=== PATIENT | female | born 1980 | race Caucasian/White ===

== ENCOUNTER 2025-04-23 17:16 | Emergency (ER) | payer BC, SELFPAY ==
[2025-04-23 17:21] VITALS: BP 142/111; PULSE 88; TEMP 36.7; O2SAT 99; BMI 31.4
--- NOTE | 2025-04-23 17:36 | US_ITS ---
The [address] [address] Patient Name: AURORA VILLAREAL MRN: [id number] date: 1980 Sex: F Assigned Patient Location: ER Current Patient Location: ED.MAIN Accession/Order Number: [id number] Exam Date: 04/23/2025 18:52 Report Date: 04/23/2025 18:54 At the request of: MO PETERSON MD Procedure: US right upper quadrant Ultrasound right upper quadrant INDICATION: Nausea and vomiting unremarkable cardiomediastinal. COMPARISON: None FINDINGS: Liver unremarkable in size and echotexture measuring 15.3 cm. Normal hepatopedal blood flow. Gallbladder without gallstones. Wall 1.8 mm. Morales's sign is negative common bile duct 3.6 mm. Pancreas is grossly unremarkable as visualized. Kidney on the right without hydronephrosis measuring 11.1 x 5.8 x 5.6 cm. US/US right upper quadrant IMPRESSION: Essentially unremarkable ultrasound right upper quadrant. Impression dictated by: Paulo Hopkins M.D. 04/23/2025 6:54 PM Dictation Location: [place] [address] Electronically authenticated by: [id number] Y Date: 04/23/2025 18:54
--- NOTE | 2025-04-23 17:39 | ED.GENADUL1 ---
HPI HPI - General Adult General Chief complaint: Abdominal Pain Stated complaint: RIGHT SIDE HURTS Time Seen by Provider: 04/23/25 17:22 Source: patient Mode of arrival: walk-in Limitations: no limitations History of Present Illness HPI narrative: 44-year-old female presents for right upper quadrant abdominal pain. She has had it continuously for 2 days. She has never had an issue with her gallbladder but multiple family members have. No trauma or fever or constipation. No chest pain or shortness of breath. Related Data Home Medications ?Medication ?Instructions ?Recorded ?Confirmed citalopram 20 mg tablet 20 mg PO DAILY 04/23/25 04/23/25 lisinopril 20 1 tab PO DAILY 04/23/25 04/23/25 mg-hydrochlorothiazide 25 mg tablet Allergies Allergy/AdvReac Type Severity Reaction Status Date / Time No Known Drug Allergies Allergy Verified 04/23/25 17:26 Opioid HPI Opioid Management Most Recent Opioid Data: Last Pain Scale 8 Today, 17:21 Review of Systems ROS Narrative A ten point review of systems is negative except as noted above. PFSH PFSH Social History Little interest or pleasure in doing things: not at all Feeling down, depressed, or hopeless: not at all Exam Narrative Exam Narrative: Nurses note and vital signs reviewed and patient is not hypoxic. General: The patient appears well and in no apparent distress. Patient is resting comfortably on cart. Skin: Warm, dry, no pallor noted. There is no rash noted. Head: Normocephalic, atraumatic Eye: Normal conjunctiva, no drainage Ears, Nose, Mouth, and Throat: oral mucosa is moist. Nares patent. Cardiovascular: Regular Rate and Rhythm Respiratory: Patient is in no distress, no accessory muscle use, lungs are clear to auscultation, no wheezing, rales or rhonchi Back: non-tender GI: Soft and nondistended. Tenderness present in the right upper quadrant without mass. Musculoskeletal: The patient has no evidence of calf tenderness, no pitting edema, symmetrical pulses noted bilaterally Neurological: A&O, normal speech Psychiatric: Cooperative Constitutional Vital Signs, click to edit/add: Last Vital Signs Temp 98.1 F 04/23/25 17:21 Pulse 88 04/23/25 17:21 Resp 18 04/23/25 17:21 BP 142/111 H 04/23/25 17:21 Pulse Ox 99 04/23/25 17:21 O2 Del Method Room Air 04/23/25 17:21 Course Vital Signs Vital signs: Vital Signs Temperature 98.1 F 04/23/25 17:21 Pulse Rate 88 04/23/25 17:21 Respiratory Rate 18 04/23/25 17:21 Blood Pressure 142/111 H 04/23/25 17:21 Pulse Oximetry 99 04/23/25 17:21 Oxygen Delivery Method Room Air 04/23/25 17:21 Temperature 98.1 F 04/23/25 17:21 Pulse Rate 88 04/23/25 17:21 Respiratory Rate 18 04/23/25 17:21 Blood Pressure 142/111 H 04/23/25 17:21 Pulse Oximetry 99 04/23/25 17:21 Oxygen Delivery Method Room Air 04/23/25 17:21 Medical Decision Making MDM Narrative Medical decision making narrative: Blood work is nonspecific. Ultrasound of right upper quadrant is ordered and pending and the patient is signed out to Dr. Madrigal at change of shift. Differential Diagnosis Differential Diagnosis: Cholelithiasis, acute cholecystitis, nonspecific abdominal pain Lab Data Lab results reviewed: Yes I reviewed the patient's lab results Labs: Lab Results 04/23/25 Range/Units 17:37 WBC 9.4 (4.0-11.0) 10^3/uL RBC 4.88 (4.20-5.40) 10^6/uL Hgb 14.9 (12.0-16.0) g/dL Hct 41.8 (36.0-48.0) % MCV 85.7 (81.0-99.0) fL MCH 30.5 (26.7-34.0) pg MCHC 35.6 H (29.9-35.2) g/dL RDW 12.6 (11.0-15.0) % Plt Count 223 (150-450) 10^3/uL MPV 10.3 (9.5-13.5) fL Neut % (Auto) 69.7 (43.0-75.0) % Lymph % (Auto) 19.1 L (20.5-60.0) % [place] % (Auto) 9.9 (1.7-12.0) % Eos % (Auto) 0.4 L (0.9-7.0) % Baso % (Auto) 0.5 (0.2-2.0) % Neut # (Auto) 6.6 H (1.4-6.5) 10^3/uL Lymph # (Auto) 1.8 (1.2-3.8) 10^3/uL [place] # (Auto) 0.9 H (0.3-0.8) 10^3/uL Eos # (Auto) 0.0 (0.0-0.7) 10^3/uL Baso # (Auto) 0.1 (0.0-0.1) 10^3/uL Abs Immat Gran (auto) 0.04 H (0.00-0.03) 10^3/uL Imm/Tot Granulo (auto) 0.4 (0.0-0.5) % Sodium 135 L (136-145) mmol/L Potassium 2.9 L* (3.5-5.1) mmol/L Chloride 96 L (98-107) mmol/L Carbon Dioxide 27.9 (21.0-32.0) mmol/L Anion Gap 14.0 BUN 20.0 H (7.0-18.0) mg/dL Creatinine 1.12 H (0.55-1.02) mg/dL Est GFR ( Amer) >60 (>=60 mL/min/1.73m^2) Est GFR (Non-Af Amer) 53 L (>=60 mL/min/1.73m^2) BUN/Creatinine Ratio 17.9 Glucose 113 H (74-106) mg/dL Calcium 9.4 (8.5-10.1) mg/dL Total Bilirubin 1.4 H (0.2-1.0) mg/dL Direct Bilirubin 0.3 H (0.0-0.2) mg/dL AST 51 H (15-37) U/L ALT 51 (14-59) U/L Alkaline Phosphatase 78 (46-116) U/L Total Protein 8.0 (6.4-8.2) g/dL Albumin 4.3 (3.4-5.0) g/dL Globulin 3.7 g/dL Albumin/Globulin Ratio 1.2 Amylase 66 (25-115) U/L Lipase 81.0 H (16.0-77.0) U/L Discharge Plan Discharge Patient Disposition: Still a Patient
[2025-04-23 17:45] LABS: Hematocrit 41.8 % (36.0-48.0); Hemoglobin 14.9 g/dL (12.0-16.0); Immature Granulocytes Abs Auto 0.04 10^3/uL (0.00-0.03); Immature Granulocytes Pct Auto 0.4 % (0.0-0.5); Lymphocytes Absolute Auto 1.8 10^3/uL (1.2-3.8); Mean Corpuscular HGB Conc 35.6 g/dL (29.9-35.2); Mean Corpuscular Hemoglobin 30.5 pg (26.7-34.0); Mean Corpuscular Volume 85.7 fL (81.0-99.0); Platelet Count 223 10^3/uL (150-450); Red Blood Count 4.88 10^6/uL (4.20-5.40); White Blood Count 9.4 10^3/uL (4.0-11.0)
[2025-04-23 18:05] LABS: Alanine Aminotransferase 51 U/L (14-59); Albumin Globulin Ratio 1.2; Albumin Level 4.3 g/dL (3.4-5.0); Alkaline Phosphatase 78 U/L (46-116); Amylase 66 U/L (25-115); Anion Gap 14.0; Aspartate Amino Transferase 51 U/L (15-37); Blood Urea Nitrogen 20.0 mg/dL (7.0-18.0); Calcium 9.4 mg/dL (8.5-10.1); Carbon Dioxide 27.9 mmol/L (21.0-32.0); Chloride 96 mmol/L (98-107); Estimated GFR (African America >60 (>=60 mL/min/1.73m^2); Estimated GFR (Non-African Ame 53 (>=60 mL/min/1.73m^2); Globulin 3.7 g/dL; Glucose 113 mg/dL (74-106); Lipase 81.0 U/L (16.0-77.0); Sodium 135 mmol/L (136-145); Total Protein 8.0 g/dL (6.4-8.2)
[2025-04-23 18:08] LABS: Potassium 2.9 mmol/L (3.5-5.1)
--- OUTSIDE RECORDS SUMMARY | 2025-04-23 18:26 | XMS_ITS | Encounter Summary ---
Author Organization [facility] Address [address] [place] [address] Care Team Providers Care Dairy Farm Worker Name Role Phone Tuan Estrella MD Primary Care Provider [phone] Tuan Estrella MD Primary Care Provider [phone] Reason for Visit * Reason Comments Med Refill Encounter Details Date Type Department Care Team ([facility] Contact Info) Description 05/08/2024 Refill [facility] [address] [place] [address] Tuan Estrella MD [address] [place] [address] Generalized anxiety disorder Social History Tobacco Use Types Packs/Day Years Used Date Smoking Tobacco: Never Assessed Comments No Sex and Gender Information Value Date Recorded Sex Assigned at Not on file Legal Sex Female 11:47 PM EDT Gender Identity Not on file Sexual Orientation Not on file documented as of this encounter Miscellaneous Notes * Telephone Encounter - Tuan Estrella MD - 05/08/2024 4:35 PM EDT Last seen in June and need to schedule follow up visit. documented in this encounter Plan of Treatment Not on file documented as of this encounter Visit Diagnoses Diagnosis Generalized anxiety disorder Generalized anxiety disorder documented in this encounter Care Teams Dairy Farm Worker Relationship Specialty Start Date End Date Tuan Estrella MD PCP - General Family Medicine 11/09/23 03/26/25 Tuan Estrella MD [address] [place] [address] PCP - General Family Medicine 03/27/25 documented as of this encounter
[2025-04-23 19:05] VITALS: BP 134/87; PULSE 82; O2SAT 99
--- NOTE | 2025-04-23 19:16 | CT_ITS ---
The [address] [address] Patient Name: AURORA VILLAREAL MRN: [id number] date: 1980 Sex: F Assigned Patient Location: ER Current Patient Location: ER Accession/Order Number: [id number] Exam Date: 04/23/2025 19:57 Report Date: 04/23/2025 20:02 At the request of: JOSIAH MEDLEY MD Procedure: CT abdomen pelvis w con CT ABDOMEN AND PELVIS WITH INTRAVENOUS CONTRAST: CLINICAL HISTORY: RUQ abd pain, N/V/D COMPARISON: None TECHNIQUE: Spiral images were obtained through the abdomen and pelvis following the administration of intravenous contrast. This CT exam was performed using one or more following dose reduction techniques: Automated exposure control, adjustment of the mA and/or kV according to patient size, or use of iterative reconstruction technique. FINDINGS: Lung Bases: [No focal opacity] Organs:Low attenuation liver suggestive of fatty infiltration. Slight prominence right proximal ureter noted no definite obstructing calculi.. Otherwise gallbladder, spleen, adrenals, kidneys, and pancreas are unremarkable.[ GI: Mild retained stool. No bowel obstruction. Appendix unremarkable.[ Pelvis:[IUD within the uterus. No suspicious adnexal masses] bladder unremarkable. Peritoneum/Retroperitoneum:No free air or free fluid.[Aorta unremarkable caliber Abd wall/Bones:Scattered Schmorl's node deformities. Mild facet arthropathy.[ CT/CT abdomen pelvis w con IMPRESSION: Negative for acute inflammatory process or bowel obstruction Impression dictated by: Paulo Hopkins M.D. 04/23/2025 8:02 PM Dictation Location: [place] [address] Electronically authenticated by: [id number] Y Date: 04/23/2025 20:02
--- NOTE | 2025-04-23 19:20 | ED.ABDPAIN1 ---
HPI - Abdominal Pain General Chief Complaint: Abdominal Pain Stated Complaint: RIGHT SIDE HURTS Time Seen by Provider: 04/23/25 17:22 Source: patient Mode of arrival: walk-in Limitations: no limitations History of Present Illness HPI narrative: This 44-year-old female with and out to me at shift change. She presents for evaluation of nausea vomiting with history of chronic diarrhea. At the time of signout labs and ultrasound were pending. I reviewed her labs. She has a potassium of 2.8. She has a mild elevation in her lipase at 81 and mild elevation in her transaminases. She admits to moderate drinking. She states that on Tuesday while grocery shopping she suddenly became extremely diaphoretic and nauseated and went home and started vomiting. She vomited all day Tuesday and Tuesday. She has chronic diarrhea for which she is seeing Dr. Ruiz later this week. She now has right upper quadrant abdominal pain. She has not had a fever. She denies any hematemesis or bloody stool. CT scan of the abdomen pelvis is negative for acute findings but does show fatty liver. The results of the CT scan were discussed with the patient and her . She was given a copy to share with the general surgeon when she sees him next week. She was given IV fluids, Zofran, Pepcid and Toradol and on reevaluation states she is feeling better. She is anxious to be discharged home. She will be discharged home with a prescription for Zofran, Pepcid, potassium and Bentyl. She was encouraged to drink plenty of fluids and return to the emergency department for worsening symptoms or any concerns. Related Data Home Medications ?Medication ?Instructions ?Recorded ?Confirmed citalopram 20 mg tablet 20 mg PO DAILY 04/23/25 04/23/25 lisinopril 20 1 tab PO DAILY 04/23/25 04/23/25 mg-hydrochlorothiazide 25 mg tablet Allergies Allergy/AdvReac Type Severity Reaction Status Date / Time No Known Drug Allergies Allergy Verified 04/23/25 17:26 PFSH PFSH Social History Little interest or pleasure in doing things: not at all Feeling down, depressed, or hopeless: not at all Exam Constitutional Vital Signs, click to edit/add: Last Vital Signs Temp 98.1 F 04/23/25 17:21 Pulse 80 04/23/25 20:50 Resp 18 04/23/25 20:50 BP 131/90 04/23/25 20:50 Pulse Ox 97 04/23/25 20:50 O2 Del Method Room Air 04/23/25 20:50 Course Vital Signs Vital signs: Vital Signs Temperature 98.1 F 04/23/25 17:21 Pulse Rate 88 04/23/25 17:21 Respiratory Rate 18 04/23/25 17:21 Blood Pressure 142/111 H 04/23/25 17:21 Pulse Oximetry 99 04/23/25 17:21 Oxygen Delivery Method Room Air 04/23/25 17:21 Temperature 98.1 F 04/23/25 17:21 Pulse Rate 80 04/23/25 20:50 Respiratory Rate 18 04/23/25 20:50 Blood Pressure 131/90 04/23/25 20:50 Pulse Oximetry 97 04/23/25 20:50 Oxygen Delivery Method Room Air 04/23/25 20:50 MDM - Abdominal Pain Lab Data Labs: Lab Results 04/23/25 Range/Units 17:37 WBC 9.4 (4.0-11.0) 10^3/uL RBC 4.88 (4.20-5.40) 10^6/uL Hgb 14.9 (12.0-16.0) g/dL Hct 41.8 (36.0-48.0) % MCV 85.7 (81.0-99.0) fL MCH 30.5 (26.7-34.0) pg MCHC 35.6 H (29.9-35.2) g/dL RDW 12.6 (11.0-15.0) % Plt Count 223 (150-450) 10^3/uL MPV 10.3 (9.5-13.5) fL Neut % (Auto) 69.7 (43.0-75.0) % Lymph % (Auto) 19.1 L (20.5-60.0) % [place] % (Auto) 9.9 (1.7-12.0) % Eos % (Auto) 0.4 L (0.9-7.0) % Baso % (Auto) 0.5 (0.2-2.0) % Neut # (Auto) 6.6 H (1.4-6.5) 10^3/uL Lymph # (Auto) 1.8 (1.2-3.8) 10^3/uL [place] # (Auto) 0.9 H (0.3-0.8) 10^3/uL Eos # (Auto) 0.0 (0.0-0.7) 10^3/uL Baso # (Auto) 0.1 (0.0-0.1) 10^3/uL Abs Immat Gran (auto) 0.04 H (0.00-0.03) 10^3/uL Imm/Tot Granulo (auto) 0.4 (0.0-0.5) % Sodium 135 L (136-145) mmol/L Potassium 2.9 L* (3.5-5.1) mmol/L Chloride 96 L (98-107) mmol/L Carbon Dioxide 27.9 (21.0-32.0) mmol/L Anion Gap 14.0 BUN 20.0 H (7.0-18.0) mg/dL Creatinine 1.12 H (0.55-1.02) mg/dL Est GFR ( Amer) >60 (>=60 mL/min/1.73m^2) Est GFR (Non-Af Amer) 53 L (>=60 mL/min/1.73m^2) BUN/Creatinine Ratio 17.9 Glucose 113 H (74-106) mg/dL Calcium 9.4 (8.5-10.1) mg/dL Total Bilirubin 1.4 H (0.2-1.0) mg/dL Direct Bilirubin 0.3 H (0.0-0.2) mg/dL AST 51 H (15-37) U/L ALT 51 (14-59) U/L Alkaline Phosphatase 78 (46-116) U/L Total Protein 8.0 (6.4-8.2) g/dL Albumin 4.3 (3.4-5.0) g/dL Globulin 3.7 g/dL Albumin/Globulin Ratio 1.2 Amylase 66 (25-115) U/L Lipase 81.0 H (16.0-77.0) U/L Discharge Plan Discharge Chief Complaint: Abdominal Pain Clinical Impression: Right upper quadrant abdominal pain, Gastroenteritis, Hypokalemia Patient Disposition: Home, Self-Care Time of Disposition Decision: 20:25 Condition: Good Mode of Transportation: Private Vehicle Prescriptions / Home Meds: No Action citalopram 20 mg tablet 20 mg PO DAILY lisinopril-hydrochlorothiazide 20-25 mg tablet 1 tab PO DAILY Print Language: Israeli Instructions: Hypokalemia (ED), Acute Nausea and Vomiting (ED), Abdominal Pain (ED) Referrals: Tuan Estrella MD [Primary Care Provider, Family Practice] - 1 week Chris Ruiz MD [Physician, General Surgery] - 1 week Discharge Date/Time: 04/23/25 20:50
[2025-04-23] MEDS: 0.9 % SODIUM CHLORIDE 1,000 ML 1000 ML IV (19:42)
[2025-04-23] MEDS: POTASSIUM CHLORIDE IN WATER 10 MEQ/100 ML PREMIX 100 MEQ IV (19:42)
[2025-04-23] MEDS: POTASSIUM BICARBONATE/CIT 25 MEQ TABLET EFF 50 MEQ PO (19:42)
[2025-04-23] MEDS: KETOROLAC TROMETHAMINE 30 MG/ML VIAL IVP (19:42)
[2025-04-23] MEDS: FAMOTIDINE/PF 20 MG/2 ML VIAL IV (19:42)
[2025-04-23 20:50] VITALS: BP 131/90; PULSE 80; O2SAT 97
== END 2025-04-23 20:50 | disposition home or self-care (01) ==
PROVIDERS: Emergency Medicine; Emergency Provider Emergency Medicine; PCP Family Medicine
DX: R10.11 Right upper quadrant pain (principal); K52.9 Noninfective gastroenteritis and colitis, unspecified; E87.6 Hypokalemia; R11.2 Nausea with vomiting, unspecified
CPT/HCPCS: 36415; 74177; 76705; 80048; 80076; 82150; 83690; 85025; 96365; 96375; 99285; J1885; J2405; J3480; J3490; Q9967

== ENCOUNTER 2025-05-28 10:28 | Outpatient (OUT) | payer BC, SELFPAY | END 2025-05-28 10:29 | disposition home or self-care (01) | LOC: PST 10:28 | PROVIDERS: PCP Family Medicine; Visit Provider Surgery | DX: Z01.818 Encounter for other preprocedural examination (principal); Z12.11 Encounter for screening for malignant neoplasm of colon; I10 Essential (primary) hypertension ==

== ENCOUNTER 2025-06-05 06:04 | Day surgery (SDC) | payer BC, SELFPAY ==
--- NOTE | 2025-06-05 | OP_ITS ---
OPERATION DATE: 06/05/2025 PREOPERATIVE DIAGNOSIS: Colorectal screening. POSTOPERATIVE DIAGNOSIS: Normal colonoscopy to cecum. PROCEDURE: Colonoscopy to cecum. SURGEON: Chris Ruiz M.D. ANESTHESIA: Monitored anesthesia care. ESTIMATED BLOOD LOSS: Zero. INDICATIONS AND CONSENT: Patient is a 44-year-old female who presents for colorectal screening. Indications, risks, benefits, alternatives of proceeding with colonoscopy were explained extensively to the patient, including the risks of bleeding, colon perforation or anesthetic complications. All of her questions were answered. Informed consent was obtained. PROCEDURE: Patient brought to the operating room, placed in the left lateral decubitus position. Monitored anesthesia care was provided. Rectal exam was performed which showed no masses or blood. The scope was inserted into the anal canal. Under direct visualization was advanced. It was advanced to the cecum where cecal markings were clearly identified. There was noted to be a good prep. Upon withdrawal of the scope, mucosal surfaces were carefully examined. There were no mass lesions or polyps. No inflammatory changes or ulcerations. No significant diverticulosis. The scope was retroflexed in the anal canal. There was no significant hemorrhoidal disease. The scope was then withdrawn. Patient tolerated procedure well, was sent to recovery room in good condition. Follow up colonoscopy should be in 10 years for screening. CC: Tuan Estrella M.D. BETZAIDA
--- OUTSIDE RECORDS SUMMARY | 2025-06-05 06:07 | XMS_ITS | Encounter Summary ---
Author Organization [facility] Address [address] [place] [address] Care Team Providers Care Dining Services Director Name Role Phone Tuan Estrella MD Primary Care Provider [phone] Tuan Estrella MD Primary Care Provider [phone] Reason for Visit * Reason Comments Med Refill Encounter Details Date Type Department Care Team ([facility] st Contact Info) Description 05/08/2024 Refill [facility] [address] [place] [address] Tuan Estrella MD [address] [place] [address] Generalized anxiety disorder Social History Tobacco Use [...] disorder documented in this encounter Care Teams Dining Services Director Relationship Specialty Start Date End Date Tuan Estrella MD PCP - General Family Medicine 11/09/23 03/26/25 Tuan Estrella MD PCP - General Family Medicine 03/27/25 documented as of this encounter
[2025-06-05 06:14] VITALS: BP 126/75; PULSE 83; TEMP 36.1; O2SAT 99; BMI 31.1
[2025-06-05 07:37] VITALS: BP 93/50; PULSE 74; TEMP 36.6; O2SAT 99
[2025-06-05 07:52] VITALS: BP 114/77; PULSE 64; O2SAT 100
[2025-06-05 08:07] VITALS: BP 115/84; PULSE 64; O2SAT 100
== END 2025-06-05 08:07 | disposition home or self-care (01) ==
LOC: SURGOUT 06:04
PROVIDERS: PCP Family Medicine; Visit Provider Surgery
PROC: (CPT 812; principal; 2025-06-05 07:30)
DX: Z12.11 Encounter for screening for malignant neoplasm of colon (principal); I10 Essential (primary) hypertension; F41.9 Anxiety disorder, unspecified; Z87.891 Personal history of nicotine dependence
CPT/HCPCS: 45378; 36415; 84703; J2704